=== PATIENT | female | born 1980 | race Two or more races ===

== ENCOUNTER 2017-10-31 15:35 | Emergency (ER) | payer MEDICAID ==
[~2017-10-31] VITALS: Ht 154.9 cm; Wt 88.5 kg
--- NOTE | 2017-10-31 15:41 | NUR ---
PT TO ED DT FLU LIKE SYMPTOMXX DAYS. PATIENT NOT IN DISTRESS. VSS
[2017-10-31] MEDS ORDERED: predniSONE 20 MG TABLET PO ONE (17:00)
[2017-10-31] MEDS ORDERED: ALBUTEROL FS 2.5 MG/3 ML VIAL.NEB CONTNEB ONE (17:00)
[2017-10-31] MEDS ORDERED: ALBUTEROL FS 2.5 MG/3 ML VIAL.NEB NEB ONE (17:00)
[2017-10-31] MEDS ORDERED: predniSONE 20 MG TABLET ONE (17:05)
--- NOTE | 2017-10-31 17:08 | NUR ---
CALLED RT FOR BREATHING TX
[2017-10-31] MEDS ORDERED: ALBUTEROL FS 2.5 MG/3 ML VIAL.NEB ONE (17:10)
[2017-10-31] MEDS ORDERED: IPRATROPIUM NEB FS 0.5 MG/2.5 ML AMPUL.NEB ONE (17:10)
[2017-10-31 18:01] VITALS: BP 140/90
--- NOTE | 2017-10-31 18:02 | NUR ---
Patient discharged to home in stable condition. Written and verbal after care instructions given. Patient verbalizes understanding of instruction. PT ambulatory with a steady gait
== END 2017-10-31 18:02 | disposition home or self-care (01) ==
LOC: ER 15:37
DX: J98.01 Acute bronchospasm (principal)
CPT/HCPCS: 94640 ×2; 99284; A4606; J7512; Z7610

== ENCOUNTER 2018-01-28 10:37 | Emergency (ER) | payer MEDICAID ==
[~2018-01-28] VITALS: Ht 154.9 cm; Wt 81.6 kg
--- NOTE | 2018-01-28 11:00 | NUR ---
LUQ ABDOMINAL PAIN x "SEVERAL WEEKS". . VSS. NOT IN DISTRESS
[2018-01-28 11:22] LABS: BASOPHILS % (AUTO) 0.3 % (0.0-2.0); EOSINOPHILS % (AUTO) 7.5 % (0.0-6.0); HEMATOCRIT 39 % (33-45); HEMOGLOBIN 12.9 g/dL (11.5-14.8); LYMPHOCYTES # (AUTO) 3.6 /CMM (0.8-4.8); LYMPHOCYTES % (AUTO) 42.3 % (20.0-44.0); MEAN CORPUSCULAR HGB CONC 33 g/dl (31.0-36.0); MEAN CORPUSCULAR VOLUME 90 fL (82-100); MONOCYTES # (AUTO) 0.5 /CMM (0.1-1.30); MONOCYTES % (AUTO) 5.9 % (2.0-12.0); NEUTROPHILS # (AUTO) 3.9 /CMM (1.8-8.9); PLATELET COUNT (AUTO) 292 /CMM (150-450); RDW COEFFICIENT OF VARIATION 12.8 (11.5-15.0); WHITE BLOOD COUNT (AUTO) 8.6 K/uL (4.3-11.0)
[2018-01-28 11:24] LABS: APPEARANCE,URINE Clear (CLEAR); BILIRUBIN,URINE Negative (NEGATIVE); BLOOD, URINE Negative Ery/uL (NEGATIVE); COLOR,URINE Yellow (YELLOW); KETONES,URINE Negative (NEGATIVE); LEUKOCYTE ESTERASE ,URINE Negative (NEGATIVE); NITRITE, URINE Negative (NEGATIVE); PH,URINE 5.5 (5.0-8.0); PROTEIN,URINE Negative (NEGATIVE); UGLUCOSE Negative (NEGATIVE); UROBILINOGEN,URINE 0.2 EU/dL (0.2)
[2018-01-28 11:32] LABS: CALCIUM, SERUM 8.8 mg/dL (8.5-10.1); CREATININE 0.7 mg/dL (0.6-1.3); POTASSIUM 4.1 mmol/L (3.5-5.1)
[2018-01-28 11:38] LABS: ALBUMIN 3.4 g/dL (3.4-5.0); BILIRUBIN,TOTAL 0.2 mg/dL (0.2-1.0); TOTAL PROTEIN, SERUM 7.7 g/dL (6.4-8.2)
[2018-01-28 13:50] VITALS: BP 125/88
--- NOTE | 2018-01-28 14:04 | NUR ---
Patient discharged to home in stable condition. Written and verbal after care instructions given. Patient verbalizes understanding of instruction.
== END 2018-01-28 14:05 | disposition home or self-care (01) ==
LOC: ER 10:43
DX: R10.12 Left upper quadrant pain (principal)
CPT/HCPCS: 36415; 80048-TC; 80076-TC; 81000-TC; 83690-TC; 84703-TC; 85025-TC; A4606; Z7610

== ENCOUNTER 2018-04-24 01:44 | Emergency (ER) | payer MEDICAID ==
[~2018-04-24] VITALS: Ht 154.9 cm; Wt 81.6 kg
[2018-04-24 01:45] VITALS: BP 155/110
[2018-04-24] MEDS ORDERED: MAG HYDROX/AL HYDROX/SIMETH 30 ML UDC ONE (02:24)
[2018-04-24] MEDS ORDERED: LIDOCAINE VISCOUS 2% UD 15 ML UDC ONE (02:24)
[2018-04-24] MEDS: LIDOCAINE VISCOUS 2% UD 15 ML UDC MM ONE (02:25)
[2018-04-24] MEDS: MAG HYDROX/AL HYDROX/SIMETH 30 ML UDC PO ONE (02:25)
== END 2018-04-24 03:13 | disposition home or self-care (01) ==
LOC: ER 01:47
DX: K21.9 Gastro-esophageal reflux disease without esophagitis (principal); Z60.2 Problems related to living alone
CPT/HCPCS: A4606; Z7610

== ENCOUNTER 2019-07-09 12:55 | Emergency (ER) | payer MEDICAID ==
[~2019-07-09] VITALS: Ht 154.9 cm; Wt 87.5 kg
[2019-07-09 13:14] VITALS: BP 155/107
[2019-07-09] MEDS ORDERED: ACETAMINOPHEN 325 MG TABLET PO ONE (14:00)
[2019-07-09] MEDS ORDERED: KETOROLAC TROMETHAMINE INJ 60 MG/2 ML VIAL IM ONE (14:00)
[2019-07-09] MEDS ORDERED: KETOROLAC TROMETHAMINE INJ 30 MG/ML VIAL ONE (14:05)
[2019-07-09] MEDS ORDERED: ACETAMINOPHEN ES 500 MG TABLET ONE (14:05)
== END 2019-07-09 14:15 | disposition home or self-care (01) ==
LOC: ER 12:57
DX: S16.1XXA Strain of muscle, fascia and tendon at neck level, initial encounter (principal); R51 Headache; Z60.2 Problems related to living alone; V49.49XA Driver injured in collision with other motor vehicles in traffic accident, initial encounter; Y93.89 Activity, other specified; Y92.413 State road as the place of occurrence of the external cause; Y99.8 Other external cause status
CPT/HCPCS: 96372; 99283; J1885